=== PATIENT | male | born 1975 | race Caucasian/White ===

== ENCOUNTER 2016-12-12 17:34 | Emergency (ER) | payer SELFPAY ==
[~2016-12-12] VITALS: Ht 182.9 cm; Wt 79.4 kg
--- NOTE | ~2016-12-12 | EKG ---
PATIENT: DEMARCO SOUZA UNIT #: [id number] Ventricular Rate: 137 BPM Atrial Rate: 137 BPM QRS Duration: 98 ms Q-T Interval: 392 ms QTC Calculation(Bezet): 591 ms Calculated R [place]: 5 degrees Calculated T [place]: 31 degrees Diagnosis Line: Supraventricular tachycardia Diagnosis Line: Nonspecific ST and T wave abnormality Diagnosis Line: Abnormal ECG Diagnosis Line: No previous ECGs available Diagnosis Line: Confirmed by SHONNA BEST MD ([id number]) on Diagnosis Line: 12/14/2016 10:51:02 AM INTERPRETING MD: NASIR HOLMAN
--- NOTE | ~2016-12-12 | CR72 ---
[facility] A Service of [facility] & [facility] [place] RADIOLOGY TEXT RESULTS PATIENT: DEMARCO SOUZA LOCATION: [facility] : 79 UNIT #: [id number] AGE: [address]: Juan Miguel Jules MD SEX: M ORDER DR: [id number] [facility] [address] [place], [place] [address] [id number] E MR#: [id number] Acc #: [id number] NAME: DEMARCO SOUZA. : 1975 SEX: M STUDY DATE/TIME: 12/12/2016 18:48 UNIT: [facility] ROOM: STUDY DESCRIPTION: CR Chest Single View Portable Attending Physician: Juan Miguel Jules M.D. Referring Physician: Eagle Cee M.D. Ordering Physician: Gaudencio Pabon M.D. Primary Care Physician: Eagle Cee M.D. MEDICAL IMAGING REPORT This report is preliminary unless electronic signature is present EXAM Frontal chest 12/12/2016. INDICATIONS 41-year-old male with syncopal episode and shortness of air today. TECHNIQUE Frontal chest. COMPARISON Compared with 02/21/2014. FINDINGS Cardiac silhouette unremarkable. Vascularity is normal. Lungs clear. No pneumothorax. IMPRESSION 1. Negative. Dictated by... Guero Rincon M.D. THIS IS AN ELECTRONICALLY VERIFIED REPORT Guero Rincon M.D. at 12/13/2016 11:20 AM Inna TD: 12/13/2016 09:41 JOB #: [id number] MEDICAL IMAGING REPORT Page 1 of 1 COPY
--- NOTE | ~2016-12-12 | CT71 ---
[facility] A Service of [facility] RADIOLOGY TEXT RESULTS PATIENT: DEMARCO SOUZA LOCATION: [facility] : 79 UNIT #: [id number] AGE: [address]: Juan Miguel Jules MD SEX: M ORDER DR: [id number] [facility] [address] [place], [place] [address] [id number] E MR#: [id number] Acc #: [id number] NAME: DEMARCO SOUZA. : 1975 SEX: M STUDY DATE/TIME: 12/12/2016 20:13 UNIT: [facility] ROOM: STUDY DESCRIPTION: CT Head Wo Contrast Attending Physician: Juan Miguel Jules M.D. Referring Physician: Eagle Cee M.D. Ordering Physician: Gaudencio Pabon M.D. Primary Care Physician: Eagle Cee M.D. MEDICAL IMAGING REPORT This report is preliminary unless electronic signature is present EXAM Head CT no contrast 12/12/2016 INDICATION Syncopal episode, lethargy today, migraine headache history. TECHNIQUE Noncontrast CT brain performed. No comparisons. This CT examination was performed with one or more of the following radiation dose reduction techniques: automatic exposure control, adjustment of mA and/or kV according to patient size, and iterative reconstruction. FINDINGS Sulci and ventricles are unremarkable. No midline shift. No evidence of acute intracranial hemorrhage. There is no mass, mass effect or edema to suggest acute infarct and no extraaxial fluid collections are present. Globes intact. Bones intact. Chronic-appearing right maxillary sinus disease. IMPRESSION 1. No clearly acute intracranial process. No evidence of acute intracranial hemorrhage. 2. Chronic right maxillary sinus disease. Dictated by... Guero Rincon M.D. THIS IS AN ELECTRONICALLY VERIFIED REPORT Guero Rincon M.D. at 12/13/2016 11:21 AM [facility] A Service of [facility] RADIOLOGY TEXT RESULTS PATIENT: DEMARCO SOUZA [id number] [birth year] UNIT #: [id number] AGE: [address]: Juan Miguel Jules MD SEX: M ORDER DR: TD: 12/13/2016 10:34 JOB #: [id number] MEDICAL IMAGING REPORT Page 1 of 1 COPY
--- NOTE | ~2016-12-12 | EKG ---
PATIENT: DEMARCO SOUZA UNIT #: [id number] Ventricular Rate: 104 BPM Atrial Rate: 104 BPM P-R Interval: 158 ms QRS Duration: 98 ms Q-T Interval: 336 ms QTC Calculation(Bezet): 441 ms P [place]: 34 degrees Calculated R [place]: 60 degrees Calculated T [place]: 25 degrees Diagnosis Line: Sinus tachycardia Diagnosis Line: Possible Left atrial enlargement Diagnosis Line: Borderline ECG Diagnosis Line: When compared with ECG of 12-DEC-2016 17:56, Diagnosis Line: (unconfirmed) Diagnosis Line: Nonspecific T wave abnormality no longer evident Diagnosis Line: in Lateral leads Diagnosis Line: Confirmed by SHONNA BEST MD ([id number]) on Diagnosis Line: 12/14/2016 10:51:09 AM INTERPRETING MD: NASIR HOLMAN
[~2016-12-12 17:34] MED LIST: ULTRAM PO
[2016-12-12 19:20] LABS: BASOPHIL% 0.1 % (0-2.5); EOSINOPHIL% 0.1 % (0.0-7.0); HEMATOCRIT 39.6 % (38.0-50.0); HEMOGLOBIN 13.2 gm/dL (13.0-16.0); LYMPHOCYTE# 0.9 X10e3 (1.0-3.5); LYMPHOCYTE% 6.2 % (17.0-45.0); MEAN CELL VOLUME 87.4 FL (83-96); MEAN CORPUSCULAR HEMOGLOBIN 29.2 PG (28-34); MEAN CORPUSCULAR HGB CONC 33.4 g/dL (30-36); MEAN PLATELET VOLUME 8.3 FL (6.5-11.5); MONOCYTE% 7.4 % (3.0-12.0); NEUTROPHIL# 12.1 X10e3 (1.5-7.1); NEUTROPHIL% 86.2 % (40-75); PLATELET COUNT 182 X10e3 (140-420); RED BLOOD COUNT 4.54 X10e (3.90-5.60); RED CELL DISTRIBUTION WIDTH 13.7 % (11.0-15.5); WHITE BLOOD COUNT 14.1 X10e3 (4.0-10.5)
[2016-12-12 19:24] LABS: DIFF IND NO
[2016-12-12 19:36] LABS: INR 0.9; PARTIAL THROMBOPLASTIN TIME 22.8 SECONDS (23.5-31.3); PROTHROMBIN TIME (PATIENT) 10.2 SECONDS (10.0-11.7)
[2016-12-12 19:44] LABS: ALBUMIN SERUM 4.6 g/dL (3.5-5.0); ALKALINE PHOSPHATASE 46 U/L (32-92); ALT (SGPT) 20 U/L (10-40); AST (SGOT) 26 U/L (10-42); BILIRUBIN, DIRECT 0.1 mg/dL (0.0-0.2); BILIRUBIN,INDIRECT 0.1 mg/dL (0.0-0.9); BILIRUBIN,TOTAL 0.2 mg/dL (0.2-2.0); BLOOD UREA NITROGEN 18 mg/dL (9-23); CALCIUM SERUM 8.7 mg/dL (8.4-10.2); CARBON DIOXIDE 30 mmol/L (22-31); CHLORIDE 102 mmol/L (100-111); CREATININE SERUM 0.8 mg/dL (0.6-1.4); GLOM FILT RATE Estimated 112.6 mL/min (>60); GLUCOSE FASTING 137 mg/dL (70-110); MAGNESIUM 1.9 mg/dL (1.6-3.0); POTASSIUM 3.4 mmol/L (3.5-5.1); SALICYLATE <4.0 mg/dL; SODIUM 140 mmol/L (135-145)
[2016-12-12 19:45] LABS: ACETAMINOPHEN <10 ug/mL
[2016-12-12 21:04] LABS: AMPHETAMINE NEG (NEG); BARBITURATES NEG (NEG); BENZODIAZEPINES POS (NEG); COCAINE NEG (NEG); MARIJUANA POS (NEG); OPIATES POS (NEG); TRICYCLIC ANTIDEPRESSANTS NEG (NEG); U METHADONE NEG (NEG)
[2016-12-12 21:45] LABS: POC - CKMB <1.0 ng/mL (0.0-7.9); POC - TROPONIN <0.05 ng/mL (<=0.05)
== END 2016-12-12 22:14 | disposition home or self-care (01) ==
LOC: CED 17:34
PROVIDERS: Emergency Medicine
DX: F19.10 Other psychoactive substance abuse, uncomplicated (principal); Z88.0 Allergy status to penicillin
CPT/HCPCS: 36415; 70450; 71010; 80048; 80076; 80307; 82553; 83735; 84484; 85025; 85610; 85730; 93005; 96360; 99291; G0480